=== PATIENT | female | born 1990 | race African-American/Black ===

== ENCOUNTER 2019-11-28 09:24 | Emergency (ER) | payer SELFPAY ==
[2019-11-28 09:39] VITALS: BP 144/105; PULSE 90; RESP 16; TEMP 37.3; O2SAT 100
--- NOTE | 2019-11-28 09:57 | ED.BACK ---
HPI - Back Pain/Injury General Chief Complaint: Back Pain/Injury Stated Complaint: back pain Time Seen by Provider: 11/28/19 09:57 Source: patient Mode of arrival: ambulatory Limitations: no limitations History of Present Illness HPI Narrative: Kristin Flores is a 28 yo female with a PMH with HTN, depression, who comes to express care with mid back pain. Started last night, lifts boxes for work Related Data Home Medications Medication Instructions Recorded Confirmed citalopram 20 mg 11/28/19 lisinopril 10 mg PO DAILY 11/28/19 11/28/19 Allergies Allergy/AdvReac Type Severity Reaction Status Date / Time No Known Allergies Allergy Unverified 04/15/16 19:15 Review of Systems Review of Systems: Narrative: CONSTITUTIONAL: Denies fever, chills, sweats. EYES: Denies visual changes, redness, discharge. ENT: Denies rhinorrhea, congestion, sore throat, otalgia. CARDIOVASCULAR: Denies chest pain, palpitations, edema. RESPIRATORY: Denies dyspnea, wheezing, cough GASTROINTESTINAL: Denies abdominal pain, nausea, vomiting, diarrhea. GENITOURINARY: Denies dysuria, hematuria, abnormal discharge SKIN: Denies rash or itching. NEUROLOGIC: Denies numbness, or focal weakness. PSYCHIATRIC: Denies anxiety or depression. Thoracic back pain PMFSH Family History Family History Other Hypertension Social History Social History (Updated 11/28/19 @ 10:06 by Annette Mullins CNP) Smoking status: Never smoker Alcohol intake: current Comments At time of signature, I agree with nursing past medical, surgical, social and family history. There is no relevant family history pertinent to the presenting complaint. Exam Narrative: Exam Narrative: GENERAL: This is a well-nourished, well-developed patient, in mild distress. HEAD: normocephalic, atraumatic. EYES: Sclera clear/white. Vision is grossly intact. EARS: External ears normal. Hearing grossly intact. NOSE: External nose normal without nasal discharge, nares without redness, no rhinorrhea. THROAT: Mucous membranes moist, NECK: Neck supple, CARDIOVASCULAR: Regular rate and rhythm without murmurs, gallops, or rubs. RESPIRATORY: Clear to auscultation. Breath sounds equal bilaterally. No wheezes, rales, or rhonchi. GASTROINTESTINAL: Abdomen soft, non-tender, SKIN: warm, intact with no suspicious lesions or rash, good texture and turgor. NEURO: awake, alert, and oriented to person, place and time. There were no obvious focal neurologic abnormalities. Steady gait EXTREMITIES: Normal range of motion. BACK: tender without deformity; able to move full ROM but some pain with rotation L, no urinary symptoms Course Course Emergency Course: Started on baclofen and 3 days ibuprofen and switch to Tylenol Vital Signs Vital signs: Vital Signs Temperature 99.2 F 11/28/19 09:39 Pulse Rate 90 11/28/19 09:39 Respiratory Rate 16 11/28/19 09:39 Blood Pressure 144/105 H 11/28/19 09:39 Pulse Oximetry 100 11/28/19 09:39 Temperature 99.2 F 11/28/19 09:39 Pulse Rate 90 11/28/19 09:39 Respiratory Rate 16 11/28/19 09:39 Blood Pressure 144/105 H 11/28/19 09:39 Pulse Oximetry 100 11/28/19 09:39 MDM - Back Pain/Injury Differential Diagnosis Differential diagnosis: Likely lumbar radiculopathy, sciatica, thoracic back pain and other Discharge Plan Discharge Clinical Impression: Acute bilateral thoracic back pain Patient Disposition: Home, Self-Care Condition: Stable Instructions: Back Pain (ED) Prescriptions: New baclofen 10 mg tablet 10 mg PO TID Qty: 30 RF: 0 ibuprofen 600 mg tablet 600 mg PO TID PRN (Reason: pain) Qty: 10 RF: 0 No Action citalopram 20 mg tablet 20 mg RF: 0 lisinopril 10 mg tablet 10 mg PO DAILY RF: 0 Follow-up/Referrals: SANTY,Brent VARMA [Primary Care Provider] - Time of Disposition: 10: Discharge Date/Time: 11/28/19
== END 2019-11-28 10:16 | disposition home or self-care (01) ==
PROVIDERS: Emergency Provider Nurse Practitioner; PCP Internal Medicine
DX: M54.6 Pain in thoracic spine (principal); I10 Essential (primary) hypertension; F32.9 Major depressive disorder, single episode, unspecified
CPT/HCPCS: 99213; G0463

== ENCOUNTER 2020-02-01 15:45 | Emergency (ER) | payer SELFPAY ==
[2020-02-01 15:56] VITALS: BP 145/101; PULSE 103; RESP 16; TEMP 37.5; O2SAT 100
--- NOTE | 2020-02-01 16:02 | ED.BACK ---
HPI - Back Pain/Injury General Chief Complaint: Back Pain/Injury Stated Complaint: Lower back pain Time Seen by Provider: 02/01/20 16:00 Source: patient and RN notes reviewed Mode of arrival: ambulatory Limitations: no limitations History of Present Illness HPI Narrative: 29-year-old female presents with concern for acute low back pain that occurred 15 minutes prior to arrival. Reports she felt her back crack and had low back pain. Reports the pain exacerbates with twisting, bending. Denies any intervention for her pain. Reports history of low back pain, has a prescription for muscle relaxers and ibuprofen at home. 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 She denies loss of bowel or bladder function, perianal anesthesia, weakness in any extremity. MD elicited complaint: back pain Related Data Home Medications Medication Instructions Recorded Confirmed citalopram [Celexa] 20 mg PO DAILY 02/01/20 02/01/20 lisinopril [Zestril] 10 mg PO DAILY 02/01/20 02/01/20 Allergies Allergy/AdvReac Type Severity Reaction Status Date / Time No Known Allergies Allergy Verified 02/01/20 16:02 Review of Systems Review of Systems: Narrative: CONSTITUTIONAL: Denies malaise, chills, sweats, or fever. CARDIOVASCULAR: Denies chest pain, palpitations, or edema. RESPIRATORY: Denies cough or dyspnea. GASTROINTESTINAL: Denies abdominal pain, nausea, vomiting, diarrhea, bloody, or mucous stools. Denies loss of bowel function GENITOURINARY: Denies dysuria or hematuria. Denies loss of bladder function, denies. Incision SKIN: Denies bruising, redness MUSCULOSKELETAL: Reports bilateral low back pain NEUROLOGIC: Denies numbness, weakness All systems reviewed & are unremarkable except as noted in HPI and below PMFSH Social History Social History (Updated 11/28/19 @ 10:06 by Annette Mullins CNP) Smoking status: Never smoker Alcohol intake: current Comments At time of signature, agree with nursing past medical, surgical, social and family history. There is no relevant family history pertinent to the presenting complaint Exam Narrative: Exam Narrative: GENERAL: Well-appearing, well-nourished, and in no acute distress. HEAD: Normocephalic, atraumatic. EYES: PERRLA and EOMI. NECK: Supple. No lymphadenopathy. CHEST: Clear to auscultation. No respiratory distress. HEART: Regular rate and rhythm. Distal pulses palpable and equal, cap refill <3 seconds ABDOMEN: Soft, nontender, nondistended, normal active bowel sounds, no palpable or pulsatile masses. No CVA tenderness MUSCULOSKELETAL: Normal range of motion and strength in all extremities; 5/5 strength with hip flexion and extension, dorsiflexion and extension, knee flexion and extension, plantar flexion and extension. Normal sensation in dermatomal distributions with sensitivity to light touch and pain. No midline back tenderness to palpation. No paraspinal tenderness. Transfers from lying to sitting to standing. SKIN: Warm, dry, no rash. No ecchymosis, erythema, open wounds to back. NEURO: No focal deficits. Alert and oriented x3. Reflexes intact. Normal gait. PSYCH: Normal mood and affect Course Course Emergency Course: Patient is aware of diagnosis, understands and agrees to treatment plan. Anticipatory guidance given. Patient agrees to follow-up as directed and is aware of reasons to seek care at the emergency department. Portions of this record may have been created with voice recognition software Vital Signs Vital signs: Vital Signs Temperature 99.5 F 02/01/20 15:56 Pulse Rate 103 H 02/01/20 15:56 Respiratory Rate 16 02/01/20 15:56 Blood Pressure 145/101 H 02/01/20 15:56 Pulse Oximetry 100 02/01/20 15:56 Temperature 99.5 F 02/01/20 15:56 Pulse Rate 103 H 02/01/20 15:56 Respiratory Rate 16 02/01/20 15:56 Blood Pressure 145/101 H 02/01/20 15:56 Pulse Oximetry 100 02/01/20 15:56 Reviewed. Patient has history of hypertension. Patient reports she forgo
[2020-02-01 16:14] VITALS: BP 150/108; PULSE 89
[2020-02-01] MEDS: KETOROLAC (*BKC) 60 MG/2 ML VIAL IM (16:20)
== END 2020-02-01 16:51 | disposition home or self-care (01) ==
PROVIDERS: Emergency Provider Nurse Practitioner
DX: M54.5 Low back pain (principal); I10 Essential (primary) hypertension; F41.9 Anxiety disorder, unspecified
CPT/HCPCS: 96372; 99213; G0463; J1885

== ENCOUNTER 2020-07-29 08:35 | Emergency (ER) | payer OTHER, SELFPAY ==
--- NOTE | 2020-07-29 08:53 | ED.NAVMDI ---
HPI - Nausea/Vomiting/Diarrhea General Chief complaint: Nausea/Vomiting/Diarrhea Stated complaint: nausea/dizziness Time Seen by Provider: 07/29/20 08:54 Source: patient and RN notes reviewed History of Present Illness HPI Narrative: Patient is a 29-year-old female who presents the urgent care with complaints of chest pain radiating to the right shoulder and neck. Patient states it started last night and has been consistent since then. Patient denies any cardiac events but states she has had a chronic hypertension. Patient also reports of some nausea without vomiting or abdominal pain as well as headaches. Patient states that it started within the last 2 days. Patient reports that she has never felt like this before . Denies any use of [id number] medication for symptoms. No other acute complaints. No acute distress noted. Patient aware of the plan of care. Some parts of this dictation were generated by voice recognition software and may contain typographical and/or grammatical inaccuracies. Related Data Home Medications Medication Instructions Recorded Confirmed citalopram [Celexa] 20 mg PO DAILY 02/01/20 07/29/20 lisinopril [Zestril] 10 mg PO DAILY 02/01/20 07/29/20 Allergies Allergy/AdvReac Type Severity Reaction Status Date / Time No Known Allergies Allergy Verified 02/01/20 16:02 Review of Systems Review of Systems: Narrative: CONSTITUTIONAL: Denies fever, chills, or sweats. EYES: Denies visual changes, redness, or discharge. ENT: Denies rhinorrhea, congestion, sore throat, or otalgia. CARDIOVASCULAR: Reports of chest pain radiating to the right shoulder and neck RESPIRATORY: Denies cough or dyspnea. GASTROINTESTINAL: Reports of intermittent nausea without vomiting, diarrhea or abdominal pain GENITOURINARY: Denies dysuria or hematuria. SKIN: Denies rash or itching. MUSCULOSKELETAL: Denies back pain, joint pain, or myalgia. NEUROLOGIC: Reports of headache All other systems reviewed are negative, except as documented in HPI. PMFSH Family History Family History Other Hypertension Social History Social History (Updated 11/28/19 @ 10:06 by Annette Mullins CNP) Smoking status: Never smoker Alcohol intake: current Comments At the time of my signature, I reviewed and agree with the nursing past medical, surgical, social, and family history. There is no relevant family history pertinent to the patient complaint. Exam Narrative: Exam Narrative: GENERAL: This is a well-nourished, well-developed patient, in no apparent distress. HEAD: normocephalic, atraumatic. EYES: PERRL. Sclera clear/white. Vision is grossly intact. EARS: External ears normal NOSE: External nose normal with no obvious nasal discharge, nares without redness, no rhinorrhea. THROAT: Mucous membranes moist NECK: Neck supple CARDIOVASCULAR: Regular rate and rhythm without murmurs, gallops, or rubs. Nonreproducible chest pain on palpation RESPIRATORY: Clear to auscultation. Breath sounds equal bilaterally. No wheezes, rales, or rhonchi. GASTROINTESTINAL: Abdomen soft, non-tender, nondistended. Bowel sounds are active. SKIN: warm, intact with no suspicious lesions or rash, good texture and turgor. NEURO: awake, alert, and oriented to person, place and time. There were no obvious focal neurologic abnormalities. EXTREMITIES: No clubbing, cyanosis, or edema. Course Vital Signs Vital signs: Vital Signs Temperature 97.9 F 07/29/20 08:59 Pulse Rate 77 07/29/20 08:59 Respiratory Rate 16 07/29/20 08:59 Blood Pressure 137/93 H 07/29/20 08:59 Pulse Oximetry 98 07/29/20 08:59 Temperature 97.9 F 07/29/20 08:59 Pulse Rate 77 07/29/20 08:59 Respiratory Rate 16 07/29/20 08:59 Blood Pressure 137/93 H 07/29/20 08:59 Pulse Oximetry 98 07/29/20 08:59 Reviewed-patient is informed that they may have pre-hypertension or hypertension based on a blood pressure
[2020-07-29 08:59] VITALS: BP 137/93; PULSE 77; RESP 16; TEMP 36.6; O2SAT 98
--- NOTE | 2020-07-29 09:09 | ECG_ITS ---
Measurements Intervals [place] Rate: 77 P: 55 CO: 170 QRS: 55 QRSD: 79 T: 46 QT: 358 QTc: 407 Interpretive Statements SINUS RHYTHM MINIMAL Q WAVES- HIGH LATERAL LEADS BORDERLINE ECG Electronically Signed On 07-29-2020 11:58:39 [employer]STER PRINTER by Brennon Pimentel D.O.
== END 2020-07-29 09:15 | disposition home or self-care (01) ==
PROVIDERS: Emergency Provider Nurse Practitioner Family; PCP Emergency Medicine
DX: R11.0 Nausea (principal); I10 Essential (primary) hypertension
CPT/HCPCS: 93005; 99213; G0463